=== PATIENT | male | born 1990 | race Caucasian/White ===

== ENCOUNTER 2022-02-07 05:41 | Emergency (ER) | payer OTHER, SELFPAY ==
[2022-02-07 05:46] VITALS: BP 130/84; PULSE 59; RESP 16; TEMP 36.4; O2SAT 100
--- NOTE | 2022-02-07 05:55 | ED_ITS ---
HPI - Eye Problem General Chief complaint: Eye Problems Stated complaint: swollen lt eye lid Time Seen by Provider: 02/07/22 05:47 Source: patient Mode of arrival: ambulatory Limitations: no limitations History of Present Illness HPI Narrative: 31-year-old otherwise healthy here with complaints of right upper eyelid pain and swelling for last 3 days . He denies any trauma. No insect bite chief complaint: eye pain Onset (ago): day(s) (3) Duration: constant Location: right eye Eye Symptoms: redness Place: home Mechanism: none Severity: mild Related Data Allergies Allergy/AdvReac Type Severity Reaction Status Date / Time No Known Allergies Allergy Verified 01/01/21 15:36 Review of Systems Review of Systems: All systems reviewed & are unremarkable except as noted in HPI and below Constitutional: Constitutional: Reports no additional constitutional complaints Eyes: Eyes: Reports as per HPI ENT: Reports system reviewed and no additional complaints, except as documented Cardiovascular: Cardiovascular: Reports no additional cardiovascular complaints Respiratory: Respiratory: Reports no additional respiratory complaints Gastrointestinal: Gastrointestinal: Reports no additional gastrointestinal complaints Musculoskeletal: Musculoskeletal: Reports no additional musculoskeletal complaints Exam Narrative: GENERAL: Well-appearing, well-nourished, and in no acute distress. HEAD: Normocephalic, atraumatic. EYES: PERRLA and EOMI.mild swelling of the right upper lid NECK: Supple. CHEST: Clear to auscultation. No respiratory distress. HEART: Regular rate and rhythm. No murmur heard. Normal peripheral pulses. EXTREMITIES: Normal range of motion. No edema. SKIN: Warm, dry, no rash. NEURO: No focal deficits. Alert and oriented x3. PSYCH: Normal mood and affect. Course Vital Signs Vital signs: Vital Signs Temperature 36.4 C 02/07/22 05:46 Pulse Rate 59 L 02/07/22 05:46 Respiratory Rate 02/07/22 05:46 Blood Pressure 130/84 02/07/22 05:46 Pulse Oximetry 100 02/07/22 05:46 Temperature 36.4 C 02/07/22 05:46 Pulse Rate 59 L 02/07/22 05:46 Respiratory Rate 02/07/22 05:46 Blood Pressure 130/84 02/07/22 05:46 Pulse Oximetry 100 02/07/22 05:46 Discharge Plan Discharge Clinical Impression: Blepharitis of eyelid of right eye Patient Disposition: Home, Self-Care Condition: Stable Instructions: Antibiotic Annie Calderon (ED) Additional Instructions: follow with your doctor or [facility] [phone] Prescriptions: New gentamicin 0.3 % (3 mg/gram) ointment 1 applic RIGHT EYE BID Qty: 3.5 0RF Follow-up/Referrals: PHYSICIAN,LANDSCAPE MANAGEMENT TECHNICIAN [Primary Care Provider] - Time of Disposition: 06:07
[2022-02-07 06:19] VITALS: BP 130/82; PULSE 72; RESP 16; O2SAT 99
== END 2022-02-07 06:21 | disposition home or self-care (01) ==
LOC: ANHED 06:01
PROVIDERS: Emergency Provider Family Medicine
DX: H01.001 Unspecified blepharitis right upper eyelid (principal)
CPT/HCPCS: 99283